=== PATIENT | male | born 1985 | race Caucasian/White ===

== ENCOUNTER 2016-12-02 17:13 | Emergency (ER) | payer SELFPAY ==
[~2016-12-02] VITALS: Ht 177.8 cm; Wt 63.0 kg
[~2016-12-02 17:13] MED LIST: BACT800T5 PO; PERC5TAB12 PO
[2016-12-02 17:18] VITALS: BP 134/86; PULSE 101; RESP 16; TEMP 98.9; O2SAT 99
== END 2016-12-02 18:45 | disposition left against medical advice (07) ==
LOC: NED 17:13
DX: K92.0 Hematemesis (principal); Z53.29 Procedure and treatment not carried out because of patient's decision for other reasons
CPT/HCPCS: 99281

== ENCOUNTER 2016-12-22 20:39 | Emergency (ER) | payer SELFPAY ==
[~2016-12-22] VITALS: Ht 177.8 cm; Wt 70.0 kg
[2016-12-22 20:41] VITALS: BP 178/94; PULSE 98; RESP 20; TEMP 98.7; O2SAT 97
--- NOTE | 2016-12-22 21:00 | PD ---
HPI Chief Complaint: Altered Mental Status Time Seen by Provider: 20:43 Travel History International Travel<30 days: No Contact w/Intl Traveler<30days: No Traveled to known affect area: No History of Present Illness HPI This patient is brought in by paramedics. The history is a little sketchy but he admits to drinking alcohol and smoking marijuana today. Paramedics were called because he had altered mental status. He's had no fever or head injury. He did not want to come but felt like they forced him. At this point he denies any physical complaint and just wants to leave. Symptoms of mild severity PFSH Past Medical History Medical History: Denies Significant Hx Tetanus Vaccination: > 5 Years Past Surgical History Surgical History: No Previous Surgery Social History Alcohol Use: No Tobacco Use: Yes (1PPD) Substance Use: Yes (METHADONE) Allergies-Medications (Allergen,Severity, Reaction): Coded Allergies: Penicillin (Verified Allergy, Severe, THROAT SWELLS, 12/22/16) Reported Meds & Prescriptions Reported Meds & Active Scripts Active No Active Prescriptions or Reported Medications Review of Systems General / Constitutional: No: Fever Cardiovascular: No: Chest Pain or Discomfort Respiratory: No: Cough Gastrointestinal: No: Vomiting Physical Exam Narrative RESPIRATORY: Respiratory effort unlabored, no retractions or use of accessory muscles. Breath sounds are clear and symmetric. CARDIOVASCULAR: Regular rate and rhythm without murmur. Extremities showed no edema or varicosities. SKIN: Focused skin assessment reveals no rash or ulcers. Skin is warm and dry. Palpation shows no induration or nodules. Data Data Last Documented VS Vital Signs Date Time Temp Pulse Resp B/P Pulse Ox O2 Delivery O2 Flow Rate FiO2 12/22/16 20:41 98.7 98 20 178/94 97 MDM Medical Decision Making Medical Screen Exam Complete: Yes Emergency Medical Condition: Yes Medical Record Reviewed: Yes Differential Diagnosis Polysubstance abuse, alcohol intoxication, medication overuse Narrative Course I have reviewed the patient's electronic medical record. Patient was drinking alcohol and smoking marijuana. He denies other substance is. He denies feeling suicidal or intentionally overdosing. He is awake and alert and following commands. He is certainly able to make his own medical decisions at this point. He refuses any treatment or care and feels fine and just wants to go home. I did recommend some observation here and testing and warned that when given Narcan we should keep an eye on him to make sure that he doesn't get drowsy after wears off. He is signing out AGAINST MEDICAL ADVICE. He has an adult here to take him home. Diagnosis Primary Impression: Alcohol use Additional Impression: Marijuana use Scripts No Active Prescriptions or Reported Meds Disposition: 07 AGAINST MEDICAL ADVICE Dharmesh Jesus MD December 22, 2016 21:00
== END 2016-12-22 20:59 | disposition left against medical advice (07) ==
LOC: NEPE 20:39
DX: F12.90 Cannabis use, unspecified, uncomplicated (principal); F17.200 Nicotine dependence, unspecified, uncomplicated; Z72.89 Other problems related to lifestyle; Z53.20 Procedure and treatment not carried out because of patient's decision for unspecified reasons
CPT/HCPCS: 99283